=== PATIENT | female | born 1980 | race Asian ===

== ENCOUNTER 2019-05-15 23:20 | Emergency (ER) | payer SELFPAY ==
[2019-05-15 23:29] VITALS: BP 143/106; PULSE 89; TEMP 97.6; BMI 28.3
--- NOTE | 2019-05-15 23:34 | PDOC ---
History of Present Illness - General Chief Complaint: Alcohol intoxication Stated Complaint: INTOX Time Seen by Provider: 05/15/19 23:33 - History of Present Illness Initial Comments: 05/16/19 00:06 This 38-year-old woman with a history of HTN/HLD brought in by ambulance with a history of alcohol intoxication. Patient is accompanied by her and teenage daughter. They state that there was an argument at home tonight and patient drank more than her usual amount of alcohol. The patient drinks beer daily (according to "3-4 a day). [place]et, arrived home from 8P and patient was mildly intoxicated but alert. At one point, the patient locked herself in the bathroom for approximately 1/2-hour. They were unable to open the door and called police. The door was opened and patient was seated on the toilet, sleeping. She was brought here for evaluation. According to the family , the patient drinks beer exclusively. No other recreational drugs used. She has no allergies and takes no daily medication. She had no trauma today; they did not witness any vomiting and she has not had any recent acute febrile illnesses. Patient drinks beer daily; no other recreational drugs Never smoked Does not take daily medication Past History - Past Medical History Allergies/Adverse Reactions: Allergies Allergy/AdvReac Type Severity Reaction Status Date / Time No Known Allergies Allergy Unverified 05/15/19 23:23 Home Medications: Ambulatory Orders Cholecalciferol (Vitamin D3) [Vitamin D3] 1,000 unit PO DAILY 05/15/19 COPD: No Hypercholesterolemia: Yes - Psycho Social/Smoking Cessation Hx Smoking History: Never smoked Review of Systems - Review of Systems Able to Perform ROS?: Yes Comments:: 12 point review of systems is negative except for what is noted in the history of present illness *Physical Exam - Vital Signs Last Vital Signs Temp Pulse Resp BP Pulse Ox 97.6 F 89 14 143/106 H 96 05/15/19 23:25 05/15/19 23:25 05/15/19 23:25 05/15/19 23:25 05/15/19 23:25 - Physical Exam GENERAL: adult female, sleeping, alcohol on breath;variably responsive to questions; slurred speech HEAD: Normal with no signs of trauma. EYES: PERRLA,pupils 3mm equal and sluggisly reactive EOMI, sclera anicteric, conjunctiva clear. ENT: Ears normal, nares patent, oropharynx clear without exudates. Dry mucous membranes. NECK: Normal range of motion, supple without lymphadenopathy, JVD, or masses. LUNGS: Breath sounds equal, clear to auscultation bilaterally. No wheezes, and no crackles. HEART:Regular rate and rhythm, normal S1 and S2 without murmur, rub or gallop. ABDOMEN:.normal bowel sounds No guarding,tenderness or rebound.No masses No distention. EXTREMITIES: Normal range of motion, no edema. No clubbing or cyanosis. No erythema, or tenderness. NEUROLOGICAL: Moving all extremities equally SKIN: Warm, Dry, normal turgor, no rashes or lesions noted. Medical Decision Making - Medical Decision Making This 38-year-old woman brought in by ambulance with alcohol intoxication; although patient drinks beer daily, according to family member she rarely drinks this heavily. Earlier this evening, there was a family argument and this resulted in patient ingesting more alcohol than she usually does. Exam as noted above. After observation of approximately 2 hours, patient continued to be stable, becoming more responsive and oriented. She was able to ambulate to the bathroom with assistance. Patient still has some slurred speech but gait was steady After approximately 1/2-hour more of observation, she again was able to ambulate with minor assistance and was discharged in the company of her and teenage daughter. Since had also been drinking, car was hired ([employer] ) for drive home Discharge - Discharge Information Problems reviewed: Yes Clinical Impression/Diagnosis: Alcohol intoxication Qualifiers: Complication of substance-induced condition: uncomplicated Qualified Code(s): F10.920 - Alcohol use, unspecified with intoxication, uncomplicated Condition: Stable Disposition: HOME - Follow up/Referral Referrals: Mp Maldonado MD [Primary Care Provider] - 2 Days - Patient Discharge Instructions Patient Printed Discharge Instructions: DI for Alcohol Abuse Additional Instructions: rest; drink plenty of water avoid excessive alcohol use followup with Dr Maldonado within 2-3 days. Call office on FridayMay 17 to arrange appointment return to ER if you have headache, abdominal pain,vomiting or fever - Post Discharge Activity
== END 2019-05-16 01:48 | disposition home or self-care (01) ==
LOC: FER 23:20 → SUPCPDRO 23:20 → FER 05-16 01:48
DX: F10.920 Alcohol use, unspecified with intoxication, uncomplicated (principal); I10 Essential (primary) hypertension; E78.5 Hyperlipidemia, unspecified
CPT/HCPCS: 99282-25